=== PATIENT | female | born 1940 | race Caucasian/White ===

== ENCOUNTER 2016-12-27 12:37 | Inpatient (IN) | payer MEDICARE, OTHER ==
--- NOTE | 2016-12-27 13:41 | RAD ---
HISTORY: hyponatremia COMPARISON: None available. TECHNIQUE: Chest, one view. FINDINGS: Examination limited by habitus. LUNGS: Ovoid density in the right perihilar region may reflect vasculature however adenopathy or nodule cannot be excluded. Please note that chest x-ray has limited sensitivity for the detection of pulmonary masses. PLEURA: No significant pleural effusion identified. No definite pneumothorax . CARDIOVASCULAR: Heart size appears within normal limits. Atherosclerotic calcification of the aorta. OSSEOUS STRUCTURES: Osseous demineralization. Degenerative changes. VISUALIZED UPPER ABDOMEN: Unremarkable. OTHER FINDINGS: None. IMPRESSION: Ovoid density in the right perihilar region may reflect vasculature however adenopathy or nodule cannot be excluded. CT of the chest with IV contrast may be considered if indicated.
--- NOTE | 2016-12-27 13:46 | C.PDOC ---
History Of Present Illness 76-year-old female, PMHx includes Arthritis, Hypertension, Osteoporosis and Hypothyroidism, presents to the emergency department from clinic with complaints of abnormal labs. Patient states she was seen at the clinic over the weekend, and had blood drawn. States she went back for f/u today and was found to have low Sodium, resulting in her being sent to the ED for further evaluation. Patient notes that she was taking Bactrim for UTI, which has now resolved. Patient denies nausea/vomiting, diarrhea, fevers, chills, shortness of breath, dizziness, back pain, symptoms, changes in bowel habits or any other associated symptoms.. No other complaints at this time. PMD Juan Cabrera MD. Time Seen by Provider: 12/27/16 13:04 Chief Complaint (Nursing): Abnormal Labs History Per: Patient History/Exam Limitations: no limitations Onset/Duration Of Symptoms: Days Current Symptoms Are (Timing): Better Severity: Moderate Past Medical History Reviewed: Historical Data, Nursing Documentation, Vital Signs Vital Signs: Last Vital Signs Temp 98.1 F 12/28/16 07:10 Pulse 57 L 12/28/16 08:00 Resp 17 12/28/16 07:10 BP 127/78 12/28/16 07:10 Pulse Ox 98 12/28/16 07:10 - Medical History PMH: Arthritis, HTN, Hypothyroidism, Osteoporosis Surgical History: Cholecystectomy Family History: States: Unknown Family Hx - Social History Hx Tobacco Use: No Hx Alcohol Use: No Hx Substance Use: No - Immunization History Hx Tetanus Toxoid Vaccination: No Hx Influenza Vaccination: No Hx Pneumococcal Vaccination: No Review Of Systems Except As Marked, All Systems Reviewed And Found Negative. Constitutional: Negative for: Fever Cardiovascular: Negative for: Chest Pain Respiratory: Negative for: Shortness of Breath Gastrointestinal: Negative for: Nausea, Vomiting Genitourinary: Positive for: Dysuria (now resolved), Frequency (now resolved). Negative for: Hematuria, Vaginal Discharge, Vaginal Bleeding Musculoskeletal: Negative for: Back Pain Skin: Negative for: Rash Neurological: Negative for: Weakness, Numbness, Headache, Dizziness Physical Exam - Physical Exam Appears: Non-toxic, No Acute Distress Skin: Warm, Dry, No Rash Head: Atraumatic, Normacephalic Eye(s): bilateral: Normal Inspection Nose: Normal Oral Mucosa: Moist Lips: Normal Appearing Neck: Normal ROM Cardiovascular: Rhythm Regular Respiratory: Normal Breath Sounds, No Accessory Muscle Use Gastrointestinal/Abdominal: Soft, No Tenderness Extremity: Normal ROM Neurological/Psych: Oriented x3, Other (ambulating in ED without difficulty.) ED Course And Treatment - Laboratory Results Result Diagrams: 12/27/16 13:39 12/28/16 11:24 ECG: Interpreted By Me, Viewed By Me ECG Rhythm: Sinus Rhythm ECG Interpretation: No Acute Changes Rate From EC O2 Sat by Pulse Oximetry: 99 - Radiology CXR: Viewed By Me, Read By Radiologist (Ovoid density in the right perihilar region may reflect vasculature however adenopathy or nodule cannot be excluded. CT of the chest with IV contrast may be considered if indicated.) Disposition - Disposition Disposition: HOSPITALIZED Disposition Time: 14:18 Condition: STABLE - Clinical Impression Clinical Impression: Hyponatremia - Scribe Statement The provider has reviewed the documentation as recorded by the Cristobalibricardo Mcdonald All medical record entries made by the Scribe were at my direction and personally dictated by me. I have reviewed the chart and agree that the record accurately reflects my personal performance of the history, physical exam, medical decision making, and the department course for this patient. I have also personally directed, reviewed, and agree with the discharge instructions and disposition.
[2016-12-27 13:48] LABS: BASO % 0.5 % (0.0-2.0); EOS % 0.7 % (0.0-4.0); HEMATOCRIT 38.9 % (34.0-47.0); LYMPH # 1.3 K/uL (1.0-4.3); MEAN CORPUSCULAR HEMOGLOBIN 30.5 pg (27.0-31.0); MEAN CORPUSCULAR HGB CONC 34.2 g/dL (33.0-37.0); MEAN PLATELET VOLUME 7.8 fL (7.2-11.7); MONO % 18.2 % (0.0-10.0); RED CELL DISTRIBUTION WIDTH 13.4 % (11.5-14.5); WHITE BLOOD COUNT 5.8 K/uL (4.8-10.8)
[2016-12-27 13:56] LABS: RBC URINE 2 /hpf (0-3); URINE BILIRUBIN NEGATIVE (NEGATIVE); URINE BLOOD NEGATIVE (NEGATIVE); URINE COLOR Yellow (YELLOW); URINE GLUCOSE (UA) NORMAL (Normal); URINE KETONE TRACE mg/dL (NEGATIVE); URINE PROTEIN NEGATIVE (NEGATIVE); URINE UROBILINOGEN NORMAL mg/dL (0.2-1.0); WBC URINE 9 /hpf (0-5)
[2016-12-27 13:57] LABS: URINE LEUKOCYTE ESTERASE 1+ Leu/uL (Negative)
[2016-12-27 14:00] LABS: CHLORIDE 80 mmol/L (98-107); POTASSIUM 3.9 mmol/L (3.6-5.2)
[2016-12-27 14:02] LABS: GFR AFRICAN-AMERICAN > 60
[2016-12-27 14:03] LABS: ALB/GLOB RATIO 1.7 (1.0-2.1); ALKALINE PHOSPHATASE 79 U/L (38-126); ALT/SGPT 45 U/L (9-52); AST/SGOT 53 U/L (14-36); BILIRUBIN,TOTAL 0.9 mg/dL (0.2-1.3); BLOOD UREA NITROGEN 13 mg/dL (7-17); CARBON DIOXIDE 26 mmol/L (22-30); GLUCOSE,RANDOM 112 mg/dL (65-105); TOTAL PROTEIN 8.3 g/dL (6.3-8.3)
[2016-12-27 14:04] LABS: CALCIUM 9.2 mg/dl (8.6-10.4)
[2016-12-27 14:08] LABS: SODIUM 117 mmol/L (132-148)
[2016-12-27] MEDS ORDERED: Sodium Chloride 0.9% 1,000 ML IV ONE (14:14)
--- NOTE | 2016-12-27 16:04 | CP.PCM.PN ---
Subjective - Date & Time of Evaluation Date of Evaluation: 12/27/16 Time of Evaluation: 12:20 - Subjective Subjective: clinically same Objective - Vital Signs/Intake and Output Vital Signs (last 24 hours): Temp Pulse Resp BP Pulse Ox 98.1 F 60 20 144/77 100 12/27/16 12:40 12/27/16 14:32 12/27/16 14:32 12/27/16 14:32 12/27/16 14:32 - Constitutional Appears: Well - Head Exam Head Exam: ATRAUMATIC, NORMAL INSPECTION, NORMOCEPHALIC - Eye Exam Eye Exam: EOMI, Normal appearance, PERRL Pupil Exam: NORMAL ACCOMODATION, PERRL - ENT Exam ENT Exam: Mucous Membranes Moist, Normal Exam - Neck Exam Neck Exam: Full ROM, Normal Inspection. absent: Lymphadenopathy - Respiratory Exam Respiratory Exam: Decreased Breath Sounds - Cardiovascular Exam Cardiovascular Exam: REGULAR RHYTHM, +S1, +S2 - GI/Abdominal Exam GI & Abdominal Exam: Soft, Diminished Bowel Sounds - Rectal Exam Rectal Exam: Deferred
--- NOTE | 2016-12-27 16:05 | CP.PCM.HP ---
History of Present Illness - History of Present Illness History of Present Illness: 76-year-old female patient with past medical history of arthritis, hypertension , osteoporosis and hypothyroidism, who presented to the ED from clinic with complaint of abnormal labs. Patient states she was seen at the clinic over the weekend, and had blood drawn. Patient states she went to bed for follow-up today and was found to have low sodium, resulting in her being sent to the ED for further evaluation. Patient notes that she was taking acting for UTI, which has not resolved. Patient denies nausea, vomiting, diarrhea, fever, chills, SOB, dizziness, back pain, symptoms, change in bowel habits or any other associated symptoms. Present on Admission - Present on Admission Any Indicators Present on Admission: No Past Patient History - Past Social History Smoking Status: Never Smoked - CARDIAC Hx Hypertension: Yes - ENDOCRINE/METABOLIC Hx Hypothyroidism: Yes - MUSCULOSKELETAL/RHEUMATOLOGICAL Hx Arthritis: Yes Hx Osteoporosis: Yes - PSYCHIATRIC Hx Substance Use: No - SURGICAL HISTORY Hx Cholecystectomy: Yes Meds Allergies/Adverse Reactions: Allergies Allergy/AdvReac Type Severity Reaction Status Date / Time No Known Allergies Allergy Verified 12/27/16 12:47 Physical Exam - Constitutional Appears: Well - Head Exam Head Exam: ATRAUMATIC, NORMAL INSPECTION, NORMOCEPHALIC - Eye Exam Eye Exam: EOMI, Normal appearance, PERRL Pupil Exam: NORMAL ACCOMODATION, PERRL - ENT Exam ENT Exam: Mucous Membranes Moist, Normal Exam - Neck Exam Neck exam: Positive for: Normal Inspection - Respiratory Exam Respiratory Exam: Decreased Breath Sounds - Cardiovascular Exam Cardiovascular Exam: REGULAR RHYTHM, +S1, +S2 - GI/Abdominal Exam GI & Abdominal Exam: Diminished Bowel Sounds, Soft - Rectal Exam Rectal Exam: Deferred Results - Vital Signs Recent Vital Signs: Last Vital Signs Temp 98.1 F 12/27/16 12:40 Pulse 60 12/27/16 14:32 Resp 20 12/27/16 14:32 BP 144/77 12/27/16 14:32 Pulse Ox 100 12/27/16 14:32 - Labs Result Diagrams: 12/29/16 10:00 12/29/16 10:00 Assessment & Plan (1) Chronic ulcer Status: Acute (2) Headache Status: Acute (3) Hypertension Status: Acute (4) Hyponatremia Status: Acute - Assessment and Plan (Free Text) Plan: Atenolol Lovenox Home medication Synthroid Singulair Protonix
[2016-12-27 17:34] LABS: CHLORIDE 88 mmol/L (98-107); POTASSIUM 3.8 mmol/L (3.6-5.2); SODIUM 121 mmol/L (132-148)
[2016-12-27 17:37] LABS: BLOOD UREA NITROGEN 13 mg/dL (7-17); CARBON DIOXIDE 25 mmol/L (22-30); GFR AFRICAN-AMERICAN > 60
[2016-12-27 17:38] LABS: CALCIUM 8.2 mg/dl (8.6-10.4); GLUCOSE,RANDOM 126 mg/dL (65-105)
[2016-12-27 21:01] LABS: CHLORIDE 89 mmol/L (98-107)
[2016-12-27 21:02] LABS: SODIUM 123 mmol/L (132-148)
[2016-12-27 21:03] LABS: BILIRUBIN,TOTAL 0.6 mg/dL (0.2-1.3); GFR AFRICAN-AMERICAN > 60
[2016-12-27 21:04] LABS: ALB/GLOB RATIO 1.3 (1.0-2.1); ALKALINE PHOSPHATASE 81 U/L (38-126); ALT/SGPT 37 U/L (9-52); AST/SGOT 52 U/L (14-36); BLOOD UREA NITROGEN 14 mg/dL (7-17); CARBON DIOXIDE 25 mmol/L (22-30); GLUCOSE,RANDOM 102 mg/dL (65-105)
[2016-12-27 21:05] LABS: CALCIUM 8.3 mg/dl (8.6-10.4)
[2016-12-28] MEDS ORDERED: Pantoprazole 40 mg EC Tab PO SCH (10:00)
[2016-12-28] MEDS ORDERED: Enoxaparin 40 mg Syringe SC SCH (10:00)
[2016-12-28] MEDS ORDERED: Levothyroxine 100 MCG TAB PO SCH (10:00)
[2016-12-28] MEDS: Naphazoline-Pheniramine Ophth Soln OU SCH ×2 (10:15→17:52)
--- NOTE | 2016-12-28 10:43 | CP.PCM.PN ---
Subjective - Date & Time of Evaluation Date of Evaluation: 12/28/16 Time of Evaluation: 15:20 - Subjective Subjective: clinically same Objective - Vital Signs/Intake and Output Vital Signs (last 24 hours): Temp Pulse Resp BP Pulse Ox 98.1 F 57 L 17 127/78 98 12/28/16 07:10 12/28/16 08:00 12/28/16 07:10 12/28/16 07:10 12/28/16 07:10 Intake and Output: 12/28/16 12/28/16 06:59 18:59 Intake Total 320 Balance 320 - Medications Medications: Current Medications Atenolol (Tenormin) 50 mg PO DAILY [facility] Last Admin: 12/28/16 10:22 Dose: 50 mg Enoxaparin Sodium (Lovenox) 40 mg SC DAILY [facility] Last Admin: 12/28/16 10:23 Dose: 40 mg Home Med (Fluticasone Propionate [Flovent Diskus]) 1 spray PO AMHS [facility] Home Med (Olopatadine Hcl [Pataday]) 1 drop BOTHEYES BID [facility] Home Med (Solifenacin Succinate [Vesicare]) 1 tab PO DAILY [facility] Levothyroxine Sodium (Synthroid) 1,000 mcg PO DAILY [facility] Montelukast Sodium (Singulair) 10 mg PO HS [facility] Pantoprazole Sodium (Protonix Ec Tab) 40 mg PO DAILY [facility] Last Admin: 12/28/16 10:23 Dose: 40 mg - Labs Labs: 12/27/16 20:47 - Constitutional Appears: Well - Head Exam Head Exam: ATRAUMATIC, NORMAL INSPECTION, NORMOCEPHALIC - Eye Exam Eye Exam: EOMI, Normal appearance, PERRL Pupil Exam: NORMAL ACCOMODATION, PERRL - ENT Exam ENT Exam: Mucous Membranes Moist, Normal Exam - Neck Exam Neck Exam: Full ROM, Normal Inspection. absent: Lymphadenopathy - Respiratory Exam Respiratory Exam: Decreased Breath Sounds - Cardiovascular Exam Cardiovascular Exam: REGULAR RHYTHM, +S1, +S2 - GI/Abdominal Exam GI & Abdominal Exam: Soft, Diminished Bowel Sounds - Rectal Exam Rectal Exam: Deferred Assessment and Plan (1) Chronic ulcer Status: Acute (2) Headache Status: Acute (3) Hypertension Status: Acute (4) Hyponatremia Status: Acute - Assessment and Plan (Free Text) Plan: Patient can be discharged today Continue medicine as prescribed Follow-up as outpatient
[2016-12-28 11:39] LABS: CHLORIDE 89 mmol/L (98-107); POTASSIUM 3.7 mmol/L (3.6-5.2); SODIUM 125 mmol/L (132-148)
[2016-12-28 11:41] LABS: BILIRUBIN,TOTAL 0.6 mg/dL (0.2-1.3); CARBON DIOXIDE 28 mmol/L (22-30); GFR AFRICAN-AMERICAN > 60
[2016-12-28 11:42] LABS: ALB/GLOB RATIO 1.4 (1.0-2.1); ALKALINE PHOSPHATASE 72 U/L (38-126); ALT/SGPT 42 U/L (9-52); AST/SGOT 41 U/L (14-36); BLOOD UREA NITROGEN 15 mg/dL (7-17); CALCIUM 8.8 mg/dl (8.6-10.4); GLUCOSE,RANDOM 87 mg/dL (65-105); TOTAL PROTEIN 6.9 g/dL (6.3-8.3)
[2016-12-28 16:29] VITALS: BP 105/50; PULSE 60; RESP 20; TEMP 97.4; O2SAT 97
[2016-12-28] MEDS ORDERED: Mometasone 220 mcg/puff-14 puff Inh INH SCH (18:00)
[2016-12-28 19:18] LABS: CHLORIDE 89 mmol/L (98-107)
[2016-12-28 19:19] LABS: POTASSIUM 3.9 mmol/L (3.6-5.2); SODIUM 125 mmol/L (132-148)
[2016-12-28 19:21] LABS: GFR AFRICAN-AMERICAN > 60
[2016-12-28 19:22] LABS: BLOOD UREA NITROGEN 17 mg/dL (7-17); CALCIUM 8.3 mg/dl (8.6-10.4); CARBON DIOXIDE 28 mmol/L (22-30); GLUCOSE,RANDOM 81 mg/dL (65-105)
--- NOTE | 2016-12-29 00:27 | CARD ---
APPROVED REPORT EKG Measurement Heart [id number] <Conclusion> Normal sinus rhythm Normal ECG
[2016-12-29] MEDS ORDERED: Tolterodine 4 mg ER Cap PO SCH (10:00)
[2016-12-29] MEDS ORDERED: Potassium Chloride 20 mEq ER Tab PO ONE (17:18)
[2016-12-30 00:17] LABS: BASO % 0.3 % (0.0-2.0); EOS # 0.1 K/uL (0.0-0.7); LYMPH # 1.7 K/uL (1.0-4.3); MEAN CELL VOLUME 90.5 fL (81.0-99.0); MEAN CORPUSCULAR HEMOGLOBIN 29.8 pg (27.0-31.0); MEAN CORPUSCULAR HGB CONC 32.9 g/dL (33.0-37.0); MONO # 0.8 K/uL (0.0-0.8); MONO % 15.1 % (0.0-10.0); NRBC % 0.1 % (0.0-2.0); RED CELL DISTRIBUTION WIDTH 13.9 % (11.5-14.5); WHITE BLOOD COUNT 5.4 K/uL (4.8-10.8)
[2016-12-30 07:15] LABS: BLOOD UREA NITROGEN 14 mg/dL (7-17); CARBON DIOXIDE 28 mmol/L (22-30); CHLORIDE 91 mmol/L (98-107); GFR AFRICAN-AMERICAN > 60; GLUCOSE,RANDOM 69 mg/dL (65-105); POTASSIUM 3.5 mmol/L (3.6-5.2); SODIUM 129 mmol/L (132-148)
[2016-12-30 07:16] LABS: CALCIUM 8.6 mg/dl (8.6-10.4)
== END 2016-12-29 19:00 | disposition home or self-care (01) | DRG 641 ==
LOC: C.ER 12:37 → C.9E 14:18 → C.6T 18:56
PROVIDERS: ADMIT Internal Medicine Nephrology; ATTEND Internal Medicine Nephrology
DX: E87.1 Hypo-osmolality and hyponatremia (principal); N39.0 Urinary tract infection, site not specified; I10 Essential (primary) hypertension; E03.9 Hypothyroidism, unspecified; Z68.23 Body mass index [BMI] 23.0-23.9, adult